=== PATIENT | male | born 1985 | race Caucasian/White ===

== ENCOUNTER 2019-12-12 18:45 | Emergency (ER) | payer SELFPAY ==
[~2019-12-12] VITALS: Ht 190.5 cm; Wt 132.9 kg
[2019-12-12 18:55] VITALS: BP 144/101
[2019-12-12] MEDS ORDERED: PRED50TA PO (19:53)
--- NOTE | 2019-12-12 19:53 | PHYS DOC ---
Past History Past Medical History: No Pertinent History Past Surgical History: No Surgical History Alcohol Use: None General Adult EDM: Chief Complaint: KNEE INJURY HPI: HPI: 34-year-old male presents with right knee pain. The patient has an old injury from football years ago. He never had it officially diagnosed. He has had on and off pain in this right knee ever since. Last few days the patient has had increased shooting pain along the medial joint line and the medial side of the knee. Today it felt like it gave out on him. The patient already wears a hinged brace for work. 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 He denies any new injury, falls, trauma. He has intermittent swelling which improves with rest and ice. He has no other complaints at this time. Review of Systems: Review of Systems: Constitutional: Denies fever or chills Eyes: Denies change in visual acuity HENT: Denies nasal congestion or sore throat Respiratory: Denies cough or shortness of breath Cardiovascular: Denies chest pain or edema GI: Denies abdominal pain, nausea, vomiting, bloody stools or diarrhea : Denies dysuria Musculoskeletal: Right knee pain Integument: Denies rash Neurologic: Denies headache, focal weakness or sensory changes Endocrine: Denies polyuria or polydipsia Lymphatic: Denies swollen glands Psychiatric: Denies depression or anxiety Heart Score: Risk Factors: Risk Factors: DM, Current or recent (<one month) smoker, HTN, HLP, family history of CAD, obesity. Risk Scores: Score 0 - 3: 2.5% MACE over next 6 weeks - Discharge Home Score 4 - 6: 20.3% MACE over next 6 weeks - Admit for Clinical Observation Score 7 - 10: 72.7% MACE over next 6 weeks - Early Invasive Strategies Allergies: Allergies: Allergies Coded Allergies Type Severity Reaction Last Updated Verified No Known Drug Allergies 12/12/19 No Physical Exam: PE: Constitutional: Well developed, well nourished, no acute distress, non-toxic appearance. [] HENT: Normocephalic, atraumatic, bilateral external ears normal, oropharynx moist, no oral exudates, nose normal. [] Eyes: PERRLA, EOMI, conjunctiva normal, no discharge. [] Neck: Normal range of motion, no tenderness, supple, no stridor. [] Cardiovascular:Heart rate regular rhythm, no murmur [] Lungs & Thorax: Bilateral breath sounds clear to auscultation [] Abdomen: Bowel sounds normal, soft, no tenderness, no masses, no pulsatile masses. [] Skin: Warm, dry, no erythema, no rash. [] Back: No tenderness, no CVA tenderness. [] Extremities: ACL and PCL with solid end feel. Tenderness along the medial joint line and along the medial collateral ligament. [] Neurologic: Alert and oriented X 3, normal motor function, normal sensory function, no focal deficits noted. [] Psychologic: Affect normal, judgement normal, mood normal. [] Current Patient Data: Vital Signs: Vital Signs Date Time Temp Pulse Resp B/P (MAP) Pulse Ox O2 Delivery O2 Flow Rate FiO2 12/12/19 18:55 97.9 90 20 144/101 (115) 97 Room Air EKG: EKG: [] Radiology/Procedures: Radiology/Procedures: [] Course & Med Decision Making: Course & Med Decision Making Pertinent Labs and Imaging studies reviewed. (See chart for details) The patient's x-ray is negative for acute findings. Based on my exam, I believe the patient is having trouble with his medial collateral ligament and/or his medial meniscus. I have advised that he follow-up with his primary care provider to get an orthopedic consult. This long-term problem is not getting better and he needs further evaluation. Patient is in agreement with this plan. I will try prednisone for a few days to try to calm down the inflammation and pain. He is stable for discharge at this time. [] Edi Disclaimer: Edi Disclaimer: This electronic medical record was generated, in whole or in part, using a voice recognition dictation system. Departure Departure: Impression: Primary Impression: Right knee pain Qualified Codes: M25.561 - Pain in right knee; G89.29 - Other chronic pain Disposition: HOME/RESIDENCE PRIOR TO ADM Condition: STABLE Referrals: PCP,NO (PCP) Patient Instructions: Knee Pain, [id number] Scripts Prednisone (PREDNISONE) 50 Mg Tablet 1 TAB PO DAILY for knee pain for 4 Days, #4 TAB Prov: STEPHIE DALTON DO 12/12/19 Justification of Admission: Justification of Admission: Justification of Admission Dx: N/A STEPHIE DALTON DO Dec 12, 2019 19:53
--- NOTE | 2019-12-12 19:57 | RAD ---
KNEE RIGHT 3V 12/12/2019 7:00 PM INDICATION: Twisted with pop heard COMPARISON: None available. TECHNIQUE: 3 views of the right knee are provided. FINDINGS/ IMPRESSION: Small knee joint effusion. There is no acute fracture or dislocation. Joint spaces are maintained. Bone mineralization is within normal limits. Regional soft tissues are within normal limits. There is no soft tissue gas or osseous erosion. No radiopaque foreign body. Electronically signed by: Yeimi Leigh MD (12/12/2019 7:54 PM) [facility]
[2019-12-12] MEDS ORDERED: predniSONE 10 MG TABLET PO ONE (20:15)
== END 2019-12-12 19:55 | disposition home or self-care (01) ==
LOC: ER 18:45
DX: G89.29 Other chronic pain (principal); M25.561 Pain in right knee; R60.0 Localized edema
CPT/HCPCS: 73562; 99283

== ENCOUNTER 2021-03-03 20:50 | Emergency (ER) | payer OTHER ==
[~2021-03-03] VITALS: Ht 190.5 cm; Wt 132.9 kg
[~2021-03-03 20:50] MED LIST: PRED50TA PO
[2021-03-03 21:00] VITALS: BP 121/76
--- NOTE | 2021-03-03 21:33 | PHYS DOC ---
Past History Past Medical History: No Pertinent History (STEPHIE DALTON DO) Past Surgical History: Other Additional Past Surgical Histo: toe surgery (STEPHIE DALTON DO) Alcohol Use: None (STEPHIE DALTON DO) General Adult EDM: Chief Complaint: LOWER EXT PAIN HPI: HPI: 36-year-old male presents with left leg pain and altered sensation. The patient has had intermittent episodes of a numbness of the skin of the middle of the left thigh. He occasionally has that feeling extends down the outside of the left calf to the ankle. He has been having this feeling more often over the last few days. He denies any falls or trauma. He walks a lot for work but has been doing that for a year. He has an appointment with his primary care physician but they advised he come to the ER since his symptoms have been getting worse lately. Patient denies any loss of bowel or bladder. He has no perineal numbness. (STEPHIE DALTON DO) Review of Systems: Review of Systems: Constitutional: Denies fever or chills Eyes: Denies change in visual acuity HENT: Denies nasal congestion or sore throat Respiratory: Denies cough or shortness of breath Cardiovascular: Denies chest pain or edema GI: Denies abdominal pain, nausea, vomiting, bloody stools or diarrhea : Denies dysuria Musculoskeletal: Denies back pain or joint pain Integument: Denies rash Neurologic: Numbness left leg. denies headache, focal weakness or sensory changes Endocrine: Denies polyuria or polydipsia Lymphatic: Denies swollen glands Psychiatric: Denies depression or anxiety (STEPHIE DALTON DO) Allergies: Allergies: Allergies Coded Allergies Type Severity Reaction Last Updated Verified Penicillins Allergy Unknown 03/03/21 Yes (STEPHIE DALTON DO) Physical Exam: PE: Constitutional: Well developed, well nourished, morbidly obese, no acute distress, non-toxic appearance. [] HENT: Normocephalic, atraumatic, bilateral external ears normal, oropharynx moist, no oral exudates, nose normal. [] Eyes: PERRLA, EOMI, conjunctiva normal, no discharge. [] Neck: Normal range of motion, no tenderness, supple, no stridor. [] Cardiovascular: Heart rate regular rhythm, no murmur [] Lungs & Thorax: Bilateral breath sounds clear to auscultation [] Abdomen: Bowel sounds normal, soft, no tenderness, no masses, no pulsatile masses. [] Skin: Warm, dry, no erythema, no rash. [] Back: No tenderness, no CVA tenderness. [] Extremities: No tenderness, no cyanosis, no clubbing, ROM intact, no edema. [] Neurologic: Alert and oriented X 3, normal motor function, normal sensory function, no focal deficits noted. [] Psychologic: Affect normal, judgement normal, mood normal. [] (STEPHIE DALTON DO) Current Patient Data: Vital Signs: Vital Signs Date Time Temp Pulse Resp B/P (MAP) Pulse Ox O2 Delivery O2 Flow Rate FiO2 03/03/21 21:00 103.2 104 18 121/76 (91) 98 Room Air (STEPHIE DALTON DO) EKG: EKG: [] (STEPHIE DALTON DO) Radiology/Procedures: Radiology/Procedures: [] Impressions: Lumbar spine AP lateral x-rays 3 views HISTORY: Leg pain and numbness. FINDINGS: Slight levoconvex lumbar scoliosis. Lumbar vertebral body height and alignment is intact. No fracture evident. Endplate Schmorl's nodes at the lower thoracic spine and upper lumbar spine from degenerative disc disease. Mild disc space narrowing at L1-L2 and L2-L3. Mild disc space narrowing with posterior disc osteophyte at L4-L5. Moderate disc space narrowing with disc osteophyte L5- S1. No fracture evident. IMPRESSION: No acute osseous injury. Changes of lumbar disc disease as described above. Electronically signed by: Mary Mccoy MD (03/03/2021 10:30 PM) [facility] [place] DICTATED AND SIGNED BY: MARY MCCOY MD DATE: 03/03/212228 CC: STEPHIE DALTON DO; YOSELIN SOTO MD ~MTH0 0 (STEPHIE DALTON DO) Heart Score: C/O Chest Pain: N/A Risk Factors: Risk Factors: DM, Current or recent (<one month) smoker, HTN, HLP, family history of CAD, obesity. Risk Scores: Score 0 - 3: 2.5% MACE over next 6 weeks - Discharge Home Score 4 - 6: 20.3% MACE over next 6 weeks - Admit for Clinical Observation Score 7 - 10: 72.7% MACE over next 6 weeks - Early Invasive Strategies (STEPHIE DALTON DO) Course & Med Decision Making: Course & Med Decision Making Pertinent Labs and Imaging studies reviewed. (See chart for details) The patient's x-ray does show some degenerative disc disease and narrowing. See official report for more details. The patient's labs are significant for a blood sugar of 309 with a normal anion gap. This is likely combination of neuropathy and possible impingement from his disc disease. I have made the patient aware of these results. He will follow-up with his primary care physic annette. He is stable for discharge at this time. [] (STEPHIE DALTON DO) Course & Med Decision Making See Dr. Dalton chart for details. (STEVEN RENEE MD) Dragon Disclaimer: Dragon Disclaimer: This electronic medical record was generated, in whole or in part, using a voice recognition dictation system. (STEPHIE DALTON DO) Departure Departure: Impression: Primary Impression: Leg pain, left Additional Impressions: Neuropathy Hyperglycemia Disposition: HOME / SELF CARE / HOMELESS Condition: STABLE Referrals: YOSELIN SOTO MD (PCP) Patient Instructions: Hyperglycemia, [id number], Pain, Neuropathic STEPHIE DALTON DO Mar 03, 2021 21:33 STEVEN RENEE MD Mar 03, 2021 22:13
[2021-03-03 22:03] LABS: BASO # 0.1 x10^3/uL (0.0-0.2); BASO % 1 % (0-3); EOS # 0.4 x10^3/uL (0.0-0.7); EOS % 4 % (0-3); HEMATOCRIT 40.5 % (39.0-53.0); HEMOGLOBIN 14.5 g/dL (13.0-17.5); LYMPH # 3.1 x10^3/uL (1.0-4.8); LYMPH % 29 % (24-48); MEAN CORPUSCULAR HEMOGLOBIN 29 pg (25-35); MEAN CORPUSCULAR HGB CONC 36 g/dL (31-37); MEAN CORPUSCULAR VOLUME 82 fL (79-100); MONO # 0.7 x10^3/uL (0.0-1.1); MONO % 6 % (0-9); NEUT # 6.4 x10^3uL (1.8-7.7); NEUT % 59 % (31-73); PLATELET COUNT 325 x10^3/uL (140-400); RED BLOOD COUNT 4.96 x10^6/uL (4.30-5.70); RED CELL DISTRIBUTION WIDTH 13.8 % (11.5-14.5); WHITE BLOOD COUNT 10.7 x10^3/uL (4.0-11.0)
[2021-03-03 22:08] LABS: CALCIUM 7.6 mg/dL (8.5-10.1); CREATININE 0.9 mg/dL (0.7-1.3); POTASSIUM 3.9 mmol/L (3.5-5.1)
[2021-03-03 22:13] LABS: ALBUMIN 3.5 g/dL (3.4-5.0); MAGNESIUM 2.3 mg/dL (1.8-2.4); TOTAL BILIRUBIN 0.9 mg/dL (0.2-1.0)
--- NOTE | 2021-03-03 22:33 | RAD ---
Lumbar spine AP lateral x-rays 3 views HISTORY: Leg pain and numbness. FINDINGS: Slight levoconvex lumbar scoliosis. Lumbar vertebral body height and alignment is intact. N o fracture evident. Endplate Schmorl's nodes at the lower thoracic spine and upper lumbar spine from degenerative disc disease. Mild disc space narrowing at L1-L2 and L2-L3. Mild disc space narrowing wi th posterior disc osteophyte at L4-L5. Moderate disc space narrowing with disc osteophyte L5-S1. No f racture evident. IMPRESSION: No acute osseous injury. Changes of lumbar disc disease as described above. Electronically signed by: Chvao Mccoy MD (03/03/2021 10:30 PM) [facility]
[2021-03-03 22:34] LABS: TOTAL PROTEIN 7.1 g/dL (6.4-8.2)
== END 2021-03-03 23:05 | disposition home or self-care (01) ==
LOC: ER 20:50
DX: M79.605 Pain in left leg (principal); G62.9 Polyneuropathy, unspecified; R73.9 Hyperglycemia, unspecified
CPT/HCPCS: 36415; 72100; 80053; 83735; 85025; 99284